=== PATIENT | male | born 1990 | race Caucasian/White ===

== ENCOUNTER 2017-07-28 02:47 | Emergency (ER) | payer OTHER ==
[~2017-07-28] VITALS: Ht 188 cm; Wt 99.8 kg
[2017-07-28 02:50] VITALS: BP 133/89
[2017-07-28] MEDS ORDERED: ESTRACE2 M3 PO (02:58)
[2017-07-28] MEDS ORDERED: CLARITIN10 MG PO (02:59)
[2017-07-28] MEDS ORDERED: ALDACTONE50 MG PO (02:59)
[2017-07-28] MEDS ORDERED: HYDROXYZINE HCL25 M1 PO (03:00)
[2017-07-28] MEDS ORDERED: TRAMADOL 50 MG50 MG PO (03:36)
== END 2017-07-28 03:45 | disposition home or self-care (01) ==
LOC: ER 02:47
DX: S97.112A Crushing injury of left great toe, initial encounter (principal); S90.212A Contusion of left great toe with damage to nail, initial encounter; F10.99 Alcohol use, unspecified with unspecified alcohol-induced disorder; Z88.8 Allergy status to other drugs, medicaments and biological substances; W20.8XXA Other cause of strike by thrown, projected or falling object, initial encounter; Y93.89 Activity, other specified; Y92.89 Other specified places as the place of occurrence of the external cause; Y99.8 Other external cause status